=== PATIENT | male | born 1955 | race Caucasian/White ===

== ENCOUNTER → 2021-03-23 | Outpatient (CLI) | payer OTHER ==
[~2021-03-23] MED LIST: ATOR40TA PO; METF10007 PO; TAMS-11 PO
[2021-03-23 09:36] LABS: BASOPHILS % (AUTO) 1 % (0-1); EOSINOPHILS % (AUTO) 1 % (1-7); LYMPHOCYTES % (AUTO) 26 % (22-44); MEAN CORPUSCULAR HEMOGLOBIN 33.3 pg (27.5-34.5); MEAN CORPUSCULAR HGB CONC 33.5 g/dL (33.2-36.2); MONOCYTES % (AUTO) 9 % (2-9); NEUTROPHILS % (AUTO) 63 % (42-75); PLATELET COUNT 177 x10^3/uL (130-400); RED CELL DISTRIBUTION WIDTH 13.7 % (9.4-14.8)
[2021-03-23 09:43] LABS: MD NO
[2021-03-23 09:45] LABS: ALANINE AMINOTRANSFERASE 20 U/L (12-78); ALBUMIN 3.8 g/dL (3.4-5.0); ANION GAP 4 mmol/L (5-15); CALCIUM 9.1 mg/dL (8.5-10.1); CHLORIDE 107 mmol/L (98-107); CREATININE 0.83 mg/dL (0.7-1.3)
[2021-03-23 09:48] LABS: ALKALINE PHOSPHATASE 69 U/L (45-117); BILIRUBIN,TOTAL 0.6 mg/dL (0.2-1.0)
== END | disposition home or self-care (01) ==
LOC: STAR 08:25
PROVIDERS: ATTEND Urology
DX: Z01.818 Encounter for other preprocedural examination (principal); C61 Malignant neoplasm of prostate; I44.4 Left anterior fascicular block; Z20.822 Contact with and (suspected) exposure to COVID-19
CPT/HCPCS: 36415; 80053; 85025; 93005; U0003; U0005

== ENCOUNTER 2021-03-29 05:18 | Inpatient (IN) | payer OTHER ==
[~2021-03-29] VITALS: Ht 167.6 cm; Wt 68.0 kg
[2021-03-29 06:03] VITALS: BP 122/77
[2021-03-29] MEDS ORDERED: CHLORHEXIDINE 15 ML UDC ONE (06:08)
[2021-03-29] MEDS ORDERED: CHLORHEXIDINE 15 ML UDC PO ONE (06:30)
[2021-03-29] MEDS ORDERED: LACTATED RINGERS 1,000 ML IV SCH (06:30)
[2021-03-29] MEDS ORDERED: BUPIVACAINE/PF 0.25% ONE (06:58)
[2021-03-29] MEDS ORDERED: OPIUM/BELLADONNA SUPP.RECT 16.2-60 MG ONE (06:58)
[2021-03-29] MEDS ORDERED: EPINEPHRINE 1 MG/ML, 1ML ONE (06:59)
[2021-03-29] MEDS ORDERED: MIDAZOLAM 1 MG/ML, 2ML ONE (07:08)
[2021-03-29] MEDS ORDERED: FENTANYL PF 250 MCG/5ML ONE ×2 (07:08→08:31)
[2021-03-29] MEDS ORDERED: ROCURONIUM 10 MG/ML,10ML ONE (07:25)
[2021-03-29] MEDS ORDERED: PROPOFOL 10 MG/ML, 20ML ONE (07:25)
[2021-03-29] MEDS ORDERED: CEFAZOLIN 1,000 MG ONE (07:25)
[2021-03-29] MEDS ORDERED: DEXAMETHASONE 4 MG/ML, 1ML ONE (07:25)
[2021-03-29] MEDS ORDERED: SUCCINYLCHOLINE 20 MG/ML, 10ML ONE (07:25)
[2021-03-29] MEDS ORDERED: OPIUM/BELLADONNA SUPP.RECT 16.2-60 MG PR ONE (07:45)
[2021-03-29] MEDS ORDERED: BUPIVACAINE/PF-EPI 0.25% 1:200K INFIL ONE (07:51)
[2021-03-29] MEDS ORDERED: hydrALAzine 20 MG/ML, 1ML IV PRN (12:00)
[2021-03-29] MEDS ORDERED: DIAZEPAM 5 MG/ML, 2ML IV PRN ×2 (12:00)
[2021-03-29] MEDS ORDERED: KETOROLAC 30 MG/1 ML IV PRN (12:00)
[2021-03-29] MEDS ORDERED: PROMETHAZINE 25 MG/ML, 1ML IV PRN (12:00)
[2021-03-29] MEDS ORDERED: LABETALOL 5MG/ML, 20ML IV PRN (12:00)
[2021-03-29] MEDS ORDERED: METOCLOPRAMIDE 5 MG/ML, 2ML IV PRN (12:00)
[2021-03-29] MEDS ORDERED: ALBUTEROL SULFATE 2.5 MG/3 ML NPPB PRN (12:00)
[2021-03-29] MEDS ORDERED: MEPERIDINE/PF 25MG/0.5ML IVPush PRN (12:00)
[2021-03-29] MEDS ORDERED: ONDANSETRON 2MG/ML, 2ML IVPush PRN (12:00)
[2021-03-29] MEDS ORDERED: hydrALAzine 20 MG/ML, 1ML ONE (12:03)
[2021-03-29] MEDS ORDERED: FENTANYL PF 100 MCG/2ML ONE (12:03)
[2021-03-29] MEDS ORDERED: OXYcodone 5 MG/5 ML ORAL.SOL UDC ONE (12:03)
[2021-03-29] MEDS: FENTANYL PF 100 MCG/2ML IV PRN ×2 (12:05→12:15)
[2021-03-29] MEDS ORDERED: HYDROmorphone 1 MG/ML, 1ML INJ ONE ×2 (12:18→12:58)
[2021-03-29] MEDS: OXYcodone 5 MG/5 ML ORAL.SOL UDC PO PRN (12:20)
[2021-03-29] MEDS: HYDROmorphone 1 MG/ML, 1ML INJ IV PRN ×4 (12:25→13:00)
[2021-03-29] MEDS ORDERED: KETOROLAC 30 MG/1 ML ONE (12:36)
[2021-03-29] MEDS ORDERED: DIAZEPAM 5 MG/ML, 2ML ONE (12:36)
[2021-03-29] MEDS ORDERED: ONDANSETRON 2MG/ML, 2ML IV PRN (13:30)
[2021-03-29] MEDS ORDERED: MORPHINE SULFATE 4 MG/ML, 1ML IV PRN (13:30)
[2021-03-29] MEDS: INSULIN REGULAR, HUMAN 100 UNIT/ML 3ML VIAL SS SQ-INSULIN SCH ×2 (14:00→20:05)
[2021-03-29] MEDS: POTASSIUM CHLORIDE 20 MEQ in SODIUM CHLORIDE 0.45% 1,000 ML IV SCH (14:17)
[2021-03-29 14:48] VITALS: BP 106/66
[2021-03-29] MEDS: ACETAMINOPHEN 500 MG TABLET PO SCH ×2 (15:08→19:59)
[2021-03-29] MEDS: OXYcodone IR 5MG TABLET PO PRN ×2 (17:04→21:23)
[2021-03-29 19:50] VITALS: BP 119/65
[2021-03-30 00:15] VITALS: BP 106/64
[2021-03-30] MEDS: POTASSIUM CHLORIDE 20 MEQ in SODIUM CHLORIDE 0.45% 1,000 ML IV SCH ×3 (00:34→19:05)
[2021-03-30] MEDS: OPIUM/BELLADONNA SUPP.RECT 16.2-60 MG PR PRN (00:46)
[2021-03-30] MEDS: ACETAMINOPHEN 500 MG TABLET PO SCH ×4 (01:55→20:59)
[2021-03-30] MEDS: OXYcodone IR 5MG TABLET PO PRN ×3 (01:55→20:58)
[2021-03-30] MEDS: INSULIN REGULAR, HUMAN 100 UNIT/ML 3ML VIAL SS SQ-INSULIN SCH ×4 (02:04→21:06)
[2021-03-30 04:05] VITALS: BP 98/62
[2021-03-30 05:21] LABS: ANION GAP 3 mmol/L (5-15); CALCIUM 8.1 mg/dL (8.5-10.1); CHLORIDE 108 mmol/L (98-107)
[2021-03-30 05:22] LABS: CREATININE 0.72 mg/dL (0.7-1.3)
[2021-03-30 07:47] VITALS: BP 101/62
[2021-03-30] MEDS: ENOXAPARIN 40 MG/0.4 ML SQ SCH (07:59)
[2021-03-30] MEDS: metFORMIN 500 MG TABLET PO SCH ×2 (07:59→17:00)
[2021-03-30 12:20] VITALS: BP 115/65
[2021-03-30] MEDS: OXYcodone 5 MG/5 ML ORAL.SOL UDC PO PRN (13:35)
[2021-03-30] MEDS ORDERED: ONDANSETRON 4 MG TABLET PO PRN (15:00)
[2021-03-30 16:50] LABS: BASOPHILS % (AUTO) 0 % (0-1); EOSINOPHILS % (AUTO) 0 % (1-7); LYMPHOCYTES % (AUTO) 6 % (22-44); MEAN CORPUSCULAR HEMOGLOBIN 33.6 pg (27.5-34.5); MEAN CORPUSCULAR HGB CONC 33.6 g/dL (33.2-36.2); MEAN PLATELET VOLUME 7.4 fL (7.4-10.4); MONOCYTES % (AUTO) 8 % (2-9); NEUTROPHILS % (AUTO) 86 % (42-75); PLATELET COUNT 140 x10^3/uL (130-400); RED BLOOD COUNT 3.79 x10^6/uL (4.38-5.82); RED CELL DISTRIBUTION WIDTH 13.5 % (9.4-14.8)
[2021-03-30 16:51] LABS: MD NO
[2021-03-30 17:01] LABS: ALANINE AMINOTRANSFERASE 18 U/L (12-78); ANION GAP 4 mmol/L (5-15); CALCIUM 8.3 mg/dL (8.5-10.1); CHLORIDE 107 mmol/L (98-107); CREATININE 0.83 mg/dL (0.7-1.3)
[2021-03-30 17:03] LABS: ALKALINE PHOSPHATASE 55 U/L (45-117); BILIRUBIN,TOTAL 0.7 mg/dL (0.2-1.0); TOTAL PROTEIN 5.9 g/dL (6.4-8.2)
[2021-03-30 19:59] VITALS: BP 123/73
[2021-03-31 01:53] VITALS: BP 103/61
[2021-03-31] MEDS: POTASSIUM CHLORIDE 20 MEQ in SODIUM CHLORIDE 0.45% 1,000 ML IV SCH ×3 (03:10→19:20)
[2021-03-31] MEDS: ACETAMINOPHEN 500 MG TABLET PO SCH ×4 (03:14→19:55)
[2021-03-31] MEDS: INSULIN REGULAR, HUMAN 100 UNIT/ML 3ML VIAL SS SQ-INSULIN SCH ×4 (03:21→20:00)
[2021-03-31 06:18] LABS: BASOPHILS % (AUTO) 0 % (0-1); EOSINOPHILS % (AUTO) 0 % (1-7); LYMPHOCYTES % (AUTO) 13 % (22-44); MEAN CORPUSCULAR HEMOGLOBIN 34.1 pg (27.5-34.5); MEAN PLATELET VOLUME 8.1 fL (7.4-10.4); MONOCYTES % (AUTO) 9 % (2-9); NEUTROPHILS % (AUTO) 78 % (42-75); PLATELET COUNT 161 x10^3/uL (130-400); RED BLOOD COUNT 3.76 x10^6/uL (4.38-5.82); RED CELL DISTRIBUTION WIDTH 13.1 % (9.4-14.8)
[2021-03-31 06:23] LABS: MD NO
[2021-03-31 06:28] LABS: CHLORIDE 107 mmol/L (98-107)
[2021-03-31 06:40] LABS: ALANINE AMINOTRANSFERASE 18 U/L (12-78); ALBUMIN 3.1 g/dL (3.4-5.0); ALKALINE PHOSPHATASE 57 U/L (45-117); ANION GAP 6 mmol/L (5-15); BILIRUBIN,TOTAL 0.9 mg/dL (0.2-1.0); CALCIUM 8.6 mg/dL (8.5-10.1); CREATININE 0.73 mg/dL (0.7-1.3); TOTAL PROTEIN 6.3 g/dL (6.4-8.2)
[2021-03-31 06:50] VITALS: BP 137/81
[2021-03-31] MEDS: OPIUM/BELLADONNA SUPP.RECT 16.2-60 MG PR PRN (07:34)
[2021-03-31] MEDS: ENOXAPARIN 40 MG/0.4 ML SQ SCH (08:41)
[2021-03-31] MEDS: metFORMIN 500 MG TABLET PO SCH ×2 (08:42→16:37)
[2021-03-31 14:52] VITALS: BP 110/68
[2021-03-31 20:13] VITALS: BP 132/81
[2021-04-01 01:47] VITALS: BP 109/65
[2021-04-01] MEDS: ACETAMINOPHEN 500 MG TABLET PO SCH ×2 (02:15→08:02)
[2021-04-01] MEDS: INSULIN REGULAR, HUMAN 100 UNIT/ML 3ML VIAL SS SQ-INSULIN SCH ×2 (02:19→08:00)
[2021-04-01] MEDS: POTASSIUM CHLORIDE 20 MEQ in SODIUM CHLORIDE 0.45% 1,000 ML IV SCH ×2 (03:25→10:23)
[2021-04-01 05:15] LABS: ANION GAP 5 mmol/L (5-15); CALCIUM 8.8 mg/dL (8.5-10.1); CHLORIDE 108 mmol/L (98-107)
[2021-04-01] MEDS: metFORMIN 500 MG TABLET PO SCH (08:01)
[2021-04-01 08:02] VITALS: BP 130/73
[2021-04-01] MEDS: ENOXAPARIN 40 MG/0.4 ML SQ SCH (08:06)
[2021-04-01 13:13] VITALS: BP 128/64
== END 2021-04-01 13:36 | disposition home or self-care (01) | DRG 707 ==
LOC: OUT 05:18 → 4NE 13:19 → OUT 13:59 → ORIP 13:59 → 4NE 14:48 → DCLOUNGE 04-01 13:20
PROVIDERS: ADMIT Urology; ATTEND Urology
PROC: 0TBC4ZX Excision of Bladder Neck, Percutaneous Endoscopic Approach, Diagnostic (ICD-10-PCS; 2021-03-29)
PROC: 8E0W4CZ Robotic Assisted Procedure of Trunk Region, Percutaneous Endoscopic Approach (ICD-10-PCS; 2021-03-29)
PROC: 0VT04ZZ Resection of Prostate, Percutaneous Endoscopic Approach (ICD-10-PCS; principal; 2021-03-29 07:30)
DX: C61 Malignant neoplasm of prostate (principal); K56.7 Ileus, unspecified; Z90.49 Acquired absence of other specified parts of digestive tract
CPT/HCPCS: 36415; 74018; 80048; 80053; 82962; 85014; 85018; 85025; 86850; 86900; 88305; 88309; C1729; G0378; J0171; J0690; J1100; J1170; J1650; J1885; J2250; J2405; J2704; J3010; J3360; J3480; Q0162; C1760; J0330; J0360; J7120

== ENCOUNTER → 2021-04-05 | Outpatient (CLI) | payer OTHER | END | disposition home or self-care (01) | LOC: RAD 08:04 | PROVIDERS: ATTEND Urology | DX: C61 Malignant neoplasm of prostate (principal); Z79.899 Other long term (current) drug therapy; Z72.89 Other problems related to lifestyle; Z87.891 Personal history of nicotine dependence | CPT/HCPCS: 51600; 74430; Q9958 ==

== ENCOUNTER 2021-07-26 11:44 | Outpatient (CLI) | payer OTHER | END 2021-07-26 23:59 | disposition home or self-care (01) | LOC: LAB 11:44 | PROVIDERS: ATTEND Urology | DX: C61 Malignant neoplasm of prostate (principal) | CPT/HCPCS: 36415; 84153; G0103 ==